=== PATIENT | female | born 1955 | race Caucasian/White ===

== ENCOUNTER → 2018-11-24 06:20 | Outpatient (CLI) | payer MEDICARE, BC ==
[~2018-11-24] VITALS: Ht 167.6 cm; Wt 87.7 kg
[~2018-11-24 06:20] MED LIST: BAYER CHEWABLE81 MG PO; CELEXA20 MG PO; COREG12.5 MG PO; GABAPENTIN100 MG PO; GLUCOPHAGE500 MG PO; GLUCOTROL 5 MG T5 MG PO; ISOSORBIDE MONO60 M1 PO; LEVOXYL100 MCG PO; LIPITOR80 MG PO; LISINOPRIL10 MG PO; PEPCID AC20 MG PO; PLAVIX75 MG PO
[2018-11-24 06:47] LABS: BASOPHILS 0.6 % (0-2); EOSINOPHILS 3.6 % (0-7); HEMATOCRIT 34.8 % (36.0-48.0); HEMOGLOBIN 10.7 g/dL (12-16); IMMATURE GRANULOCYTES 0.3 % (0-5); LYMPHOCYTES 37.6 % (15-50); MCH 25.4 pg (26.0-34.0); MCHC 30.7 g/dL (31.0-37.0); MCV 82.7 fL (80.0-100.0); MONOCYTES 5.3 % (2-11); NEUTROPHILS 52.6 % (40-80); PLATELET COUNT 201 10x3/uL (130-400); RBC 4.21 10x6/uL (4.00-5.40); RDW 14.8 % (11.5-14.5)
[2018-11-24 07:02] LABS: CALC OSMOLALITY 287 mosm/kg (275-300); CALCIUM 8.2 mg/dL (8.5-10.1); CHLORIDE - SERUM 105 mmol/L (98-107); CREATININE - SERUM 0.8 mg/dL (0.6-1.3); GLUCOSE 182 mg/dL (74-106); SODIUM 142 mmol/L (136-145); UREA NITROGEN 13 mg/dL (7-18); eGFR NON AFRICAN AMERICAN 77 mL/min (90-120)
[2018-11-24 07:19] LABS: APTT 40.1 SECONDS (22.8-39.4); INR 1.2 (0.85-1.17); PROTIME 14.7 SECONDS (11.6-15.0)
[2018-11-24 07:39] VITALS: BP 139/82; Ht 167.6 cm; Wt 87.7 kg
--- NOTE | 2018-11-24 10:30 | NUR ---
PATIENT LEFT THE UNIT VIA WHEELCHAIR. SHE WAS GIVEN DISCHARGE INSTRUCTIONS AND STATED UNDERSTADNING. MV
== END | disposition home or self-care (01) ==
LOC: D.SP 06:20
PROVIDERS: Specialist
DX: K76.0 Fatty (change of) liver, not elsewhere classified (principal); K74.0 Hepatic fibrosis; Z01.812 Encounter for preprocedural laboratory examination